=== PATIENT | male | born 1965 | race Two or more races ===

== ENCOUNTER 2016-07-08 03:36 | Emergency (ER) | payer OTHER ==
--- NOTE | ~2016-07-08 | CR63 ---
[facility] A Service of [facility] & [facility] / [facility] RADIOLOGY TEXT RESULTS PATIENT: RADAH CURIEL LOCATION: [facility] : [birth year] UNIT #: [id number] AGE: [address]: Erlinda Ruth APRN SEX: M ORDER DR: [id number] [facility] [address] [place], [place] [address] [id number] MR#: [id number] Acc #: [id number] NAME: RADHA CURIEL : 1965 SEX: M STUDY DATE/TIME: 07/08/2016 4:20 UNIT: [facility] ROOM: STUDY DESCRIPTION: CR Chest 2 View Attending Physician: Hannah PikeRSylvester Ordering Physician: Erlinda Ruth A.P.R.N. Primary Care Physician: Clint ElizabethPPaytonRSylvester MEDICAL IMAGING REPORT This report is preliminary unless electronic signature is present EXAM Chest x-ray 07/08/2016. HISTORY 50-year-old male in the ED complaining of 1-day history of cough, shortness of air, earache. TECHNIQUE PA and lateral upright chest series. FINDINGS Heart size and pulmonary vascularity are normal. The lungs are expanded and clear. No visible pulmonary infiltrate or pleural effusion. No change since 05/20/2016. IMPRESSION Negative chest. No change since 05/20/2016. Dictated by... Galileo Arriaza M.D. THIS IS AN ELECTRONICALLY VERIFIED REPORT Galileo Arriaza M.D. at 07/08/2016 9:43 PM DENISEW/kai TD: 07/08/2016 13:02 JOB #: [id number] MEDICAL IMAGING REPORT Page 1 of 1 COPY
[~2016-07-08 03:36] MED LIST: BACTRIM DS TABL1 TAB PO; FLEXERIL PO; KETOPROFEN PO; NO MEDICATIONS; ULTRAM PO; VIBRAMYCIN100 M1 PO
[2016-07-08 04:22] LABS: INFLUENZA A NEG (NEG); INFLUENZA B NEG (NEG)
== END 2016-07-08 05:10 | disposition home or self-care (01) ==
LOC: CED 03:36
PROVIDERS: Nurse Practitioner
DX: J06.9 Acute upper respiratory infection, unspecified (principal); J45.909 Unspecified asthma, uncomplicated; Z86.19 Personal history of other infectious and parasitic diseases; Z90.49 Acquired absence of other specified parts of digestive tract; Z87.442 Personal history of urinary calculi; Z88.0 Allergy status to penicillin; Z88.1 Allergy status to other antibiotic agents
CPT/HCPCS: 71020; 87651; 87804; 96372; 99283; J1885

== ENCOUNTER → 2016-08-08 | Day surgery (SDC) | payer OTHER ==
--- NOTE | ~2016-08-08 | OR ---
Unit #: [id number] #: [id number] Patient: RADHA CURIEL [id number] [address] [address] [id number] O MR#: [id number] NAME: RADHA CURIEL ROOM: Date of Procedure: 08/08/2016 Admission Date: 08/08/2016 Surgeon: Dani Upton M.D. : 1965 Attending Physician: Dani Upton M.D. Referring Physician: Dani Upton M.D. Primary Care Physician: Shahrzad Vasquez A.P.R.N. OPERATIVE REPORT INDICATIONS FOR PROCEDURE Esophagogastroduodenoscopy with biopsies. INDICATIONS FOR PROCEDURE The patient with chronic GERD, history of Paez esophagus. MEDICATIONS Monitored anesthesia. POSTOPERATIVE FINDINGS 1. Very small area of suspicions Paez's, biopsies taken. 2. Small hiatal hernia. 3. Chronic appearing gastropathy, biopsies taken looking for H pylori. 4. Normal duodenum and distal duodenum. PLAN Continue PPI therapy. Follow up on the pathology report. If Paez's is confirmed, repeat upper endoscopy in 3 years. DESCRIPTION OF PROCEDURE The patient was explained of the procedure, risks, and benefits along with the risks and benefits of anesthesia. Bite block was placed. The scope was passed down the mouth into the esophagus, stomach, duodenum, and distal duodenum. Findings as described. Biopsies taken. Gently, I pulled the scope out of the patient's mouth. He tolerated the procedure well. No major complications were seen. Dictated by... Erickson Reyes/kena TD: 08/09/2016 01:52 JOB #: [id number] Unit #: [id number] #: [id number] Patient: RADHA CURIEL OPERATIVE REPORT Page 1 of 1 X Dani Upton MD X PROCEDURE OPERATIVE NOTE
== END | disposition home or self-care (01) ==
LOC: COPS 10:12
DX: K29.50 Unspecified chronic gastritis without bleeding (principal); K44.9 Diaphragmatic hernia without obstruction or gangrene; K31.9 Disease of stomach and duodenum, unspecified; J45.909 Unspecified asthma, uncomplicated; G89.29 Other chronic pain; Z88.0 Allergy status to penicillin; Z88.1 Allergy status to other antibiotic agents; Z90.49 Acquired absence of other specified parts of digestive tract; Z90.89 Acquired absence of other organs
CPT/HCPCS: 88305; 88312

== ENCOUNTER → 2016-09-08 | Outpatient (CLI) | payer OTHER ==
--- NOTE | ~2016-09-08 | CR7 ---
[facility] A Service of [facility] RADIOLOGY TEXT RESULTS PATIENT: RADHA CURIEL LOCATION: [facility] : [birth year] UNIT #: [id number] AGE: [address]: Zeyad Garnica MD SEX: M ORDER DR: [id number] [facility] [address] [place], [place] [address] [id number] O MR#: [id number] Acc #: [id number] NAME: RADHA CURIEL : 1965 SEX: M STUDY DATE/TIME: 09/08/2016 11:23 UNIT: [facility] ROOM: STUDY DESCRIPTION: CR Abdomen Single AP View Attending Physician: Zeyad Garnica M.D. Referring Physician: Zeyad Garnica M.D. Ordering Physician: Zeyad Garnica M.D. Primary Care Physician: Shahrzad Vasquez MEDICAL IMAGING REPORT This report is preliminary unless electronic signature is present EXAM AP abdomen DATE 09/08/2016 HISTORY 51-year-old male with prostatitis. Left testicular swelling. Left lower abdominal pain. Symptoms present for 1 month. COMPARISON No prior abdominal radiograph at this institution for comparison. FINDINGS No urinary tract stone is identified. A single round calcification within the pelvis to the left of midline is favored to represent a phlebolith. Nonspecific, but nonobstructive appearing bowel gas pattern. No acute osseous abnormalities are identified. IMPRESSION No acute findings within the abdomen. Dictated by... Gisell Ny M.D. THIS IS AN ELECTRONICALLY VERIFIED REPORT Gisell Ny M.D. at 09/11/2016 8:30 AM H/to TD: 09/08/2016 18:04 JOB #: [id number] MEDICAL IMAGING REPORT [facility] A [facility] RADIOLOGY TEXT RESULTS PATIENT: RADHA CURIEL LOCATION: [facility] : [birth year] UNIT #: [id number] AGE: [address]: Zeyad Garnica MD SEX: M ORDER DR: Page 1 of 1 COPY
--- NOTE | ~2016-09-08 | US113 ---
[facility] A Service of [facility] RADIOLOGY TEXT RESULTS PATIENT: RADHA CURIEL LOCATION: [facility] : [birth year] UNIT #: [id number] AGE: [address]: Zeyad Garnica MD SEX: M ORDER DR: [id number] [facility] [address] [place], [place] [address] [id number] O MR#: [id number] Acc #: [id number] NAME: RADHA CURIEL : 1965 SEX: M STUDY DATE/TIME: 09/08/2016 12:06 UNIT: [facility] ROOM: STUDY DESCRIPTION: US Scrotal Duplex Complete Attending Physician: Zeyad Garnica M.D. Referring Physician: Zeyad Garnica M.D. Ordering Physician: Zeyad Garnica M.D. Primary Care Physician: Shahrzad Vasquez A.P.R.N. MEDICAL IMAGING REPORT This report is preliminary unless electronic signature is present EXAM Bilateral scrotal ultrasound. DATE 09/08/2016 HISTORY 51-year-old male with complaints of bilateral testicular pain for several years, left worse over the past few months. Previous history of hernia surgery. COMPARISON No previous scrotal ultrasound at this institution for comparison. FINDINGS The right testicle measures 3.6 x 2.7 x 2.1 cm. The left testicle measures 4.2 x 3.2 x 2.5 cm. Both testicles demonstrate normal homogeneous echotexture without focal or suspicious abnormality. Both testicles demonstrate normal color flow. Tiny left epididymal head cyst or spermatocele measures only 2 mm. The epididymides otherwise appear unremarkable. There is trace left scrotal hydrocele. No varicocele is seen. IMPRESSION 1. Normal sonographic appearance of each testicle. Normal flow was documented to each testicle. 2. Trace left scrotal hydrocele. 3. 2 mm left epididymal head cyst or spermatocele. Dictated by... Gisell Ny M.D. [facility] A Service of [facility] RADIOLOGY TEXT RESULTS PATIENT: RADHA CURIEL LOCATION: [facility] : [birth year] UNIT #: [id number] AGE: [address]: Zeyad Garnica MD SEX: M ORDER DR: THIS IS AN ELECTRONICALLY VERIFIED REPORT Gisell Ny M.D. at 09/11/2016 8:30 AM Delilah TD: 09/08/2016 17:44 JOB #: [id number] MEDICAL IMAGING REPORT Page 1 of 1 COPY
== END | disposition home or self-care (01) ==
LOC: CGUS 11:02
DX: N41.9 Inflammatory disease of prostate, unspecified (principal)
CPT/HCPCS: 74000; 93975

== ENCOUNTER 2016-10-06 16:57 | Emergency (ER) | payer OTHER ==
--- NOTE | ~2016-10-06 | CR72 ---
[facility] A Service of [facility] & [facility] RADIOLOGY TEXT RESULTS PATIENT: RADHA CURIEL LOCATION: [facility] : [birth year] UNIT #: [id number] AGE: [address]: Noemi Blood MD SEX: M ORDER DR: [id number] [facility] [address] [place], [place] [address] [id number] E MR#: [id number] Acc #: [id number] NAME: RADHA CURIEL : 1965 SEX: M STUDY DATE/TIME: 10/06/2016 22:13 UNIT: [facility] ROOM: STUDY DESCRIPTION: CR Chest Single View Portable Attending Physician: Noemi Blood M.D. Ordering Physician: Noemi Blood M.D. Primary Care Physician: Shahrzad Vasquez A.P.R.N. MEDICAL IMAGING REPORT This report is preliminary unless electronic signature is present EXAM Portable chest. HISTORY Chest and abdominal pain onset today. COMPARISON 07/08/2016 FINDINGS A single AP portable view of the chest shows both lungs to be clear. The heart is normal in size. The mediastinal contour is normal. No significant bone abnormalities are seen. IMPRESSION Normal portable chest. Dictated by... Nena Polanco M.D. THIS IS AN ELECTRONICALLY VERIFIED REPORT Nena Polanco M.D. at 10/07/2016 3:11 PM RONALDO/cheo TD: 10/07/2016 11:25 JOB #: [id number] MEDICAL IMAGING REPORT Page 1 of 1 COPY
[2016-10-06 20:17] LABS: BASOPHIL# 0.1 X10e3 (0-0.3); BASOPHIL% 0.5 % (0-2.5); EOSINOPHIL# 0.2 X10e3 (0-0.7); EOSINOPHIL% 1.7 % (0.0-7.0); HEMATOCRIT 46.5 % (38.0-50.0); HEMOGLOBIN 15.9 gm/dL (13.0-16.0); LYMPHOCYTE# 2.7 X10e3 (1.0-3.5); LYMPHOCYTE% 25.8 % (17.0-45.0); MEAN CELL VOLUME 85.3 FL (83-96); MEAN CORPUSCULAR HEMOGLOBIN 29.2 PG (28-34); MEAN CORPUSCULAR HGB CONC 34.2 g/dL (30-36); MEAN PLATELET VOLUME 7.9 FL (6.5-11.5); MONOCYTE# 0.8 X10e3 (0-1.0); MONOCYTE% 7.5 % (3.0-12.0); NEUTROPHIL# 6.7 X10e3 (1.5-7.1); NEUTROPHIL% 64.5 % (40-75); PLATELET COUNT 235 X10e3 (140-420); RED BLOOD COUNT 5.45 X10e (3.90-5.60); RED CELL DISTRIBUTION WIDTH 13.1 % (11.0-15.5); WHITE BLOOD COUNT 10.3 X10e3 (4.0-10.5)
[2016-10-06 20:18] LABS: DIFF IND NO
[2016-10-06 20:50] LABS: ALBUMIN SERUM 4.5 g/dL (3.5-5.0); BILIRUBIN, DIRECT 0.1 mg/dL (0.0-0.2); BILIRUBIN,INDIRECT 0.4 mg/dL (0.0-0.9); BILIRUBIN,TOTAL 0.5 mg/dL (0.2-2.0); CALCIUM SERUM 9.1 mg/dL (8.4-10.2); CREATININE SERUM 0.6 mg/dL (0.6-1.4); GLOM FILT RATE Estimated 118.1 mL/min (>60); POTASSIUM 3.9 mmol/L (3.5-5.1); PROTEIN TOTAL SERUM 7.4 g/dL (6.0-8.3)
[2016-10-06 20:55] LABS: URINE SOURCE CLEAN CATCH
[2016-10-06 21:23] LABS: URINE APPEARANCE CLEAR; URINE BLOOD NEG (NEG); URINE COLOR YELLOW; URINE GLUCOSE NORM (NORM); URINE KETONE NEG (NEG); URINE LEUKOCYTE ESTERASE NEG (NEG); URINE NITRATE NEG (NEG); URINE PROTEIN NEG (NEG); URINE UROBILINOGEN NORM (NORM)
[2016-10-06 21:24] LABS: URINE BILIRUBIN NEG (NEG)
[2016-10-06 21:25] LABS: CULTURE INDICATED? NO
[2016-10-06 22:54] LABS: POC - CKMB 1.9 ng/mL (0.0-7.9); POC - TROPONIN <0.05 ng/mL (<=0.05)
== END 2016-10-06 23:30 | disposition home or self-care (01) ==
LOC: CED 16:57
PROVIDERS: Emergency Medicine
DX: K21.9 Gastro-esophageal reflux disease without esophagitis (principal); J45.909 Unspecified asthma, uncomplicated; Z87.442 Personal history of urinary calculi; Z86.19 Personal history of other infectious and parasitic diseases; Z88.0 Allergy status to penicillin; Z88.1 Allergy status to other antibiotic agents
CPT/HCPCS: 36415; 71010; 80048; 80076; 81003; 82150; 82553; 83690; 84484; 85025; 99284

== ENCOUNTER 2016-10-20 19:00 | Emergency (ER) | payer OTHER | END 2016-10-20 21:35 | disposition home or self-care (01) | LOC: CED 19:00 | DX: A60.01 Herpesviral infection of penis (principal); Z20.2 Contact with and (suspected) exposure to infections with a predominantly sexual mode of transmission; Z88.0 Allergy status to penicillin | CPT/HCPCS: 96372; 99283; J0696 ==

== ENCOUNTER 2016-11-01 02:07 | Emergency (ER) | payer OTHER ==
[~2016-11-01] VITALS: Ht 182.9 cm; Wt 94.3 kg
== END 2016-11-01 03:10 | disposition home or self-care (01) ==
LOC: CED 02:07
DX: R11.2 Nausea with vomiting, unspecified (principal); R51 Headache; T36.8X5A Adverse effect of other systemic antibiotics, initial encounter; Z87.442 Personal history of urinary calculi; J45.909 Unspecified asthma, uncomplicated; Z90.49 Acquired absence of other specified parts of digestive tract
CPT/HCPCS: 99283